=== PATIENT | female | born 1945 | race Caucasian/White ===

== ENCOUNTER 2018-11-22 20:34 | Inpatient (IN) | payer MEDICARE, MEDICAID ==
[2018-11-22] MEDS ORDERED: Sodium Chloride 0.9% 1,000 ML IV ONE (20:50)
--- NOTE | 2018-11-22 21:04 | C.PDOC ---
History Of Present Illness 73 y/o female comes in to ED complaining of diarrhea x3 days with mucus, no blood. Patient denies abdominal pain but states she feels nauseous. Patient also denies chest pain, SOB, fever, chills, or other symptoms. Time Seen by Provider: 11/22/18 20:45 Chief Complaint (Nursing): Abdominal Pain History Per: Patient History/Exam Limitations: no limitations Onset/Duration Of Symptoms: Days Current Symptoms Are (Timing): Still Present Past Medical History Reviewed: Historical Data, Nursing Documentation, Vital Signs Vital Signs: Last Vital Signs Temp 97.3 F L 11/22/18 20:49 Pulse 74 11/22/18 20:49 Resp 18 11/22/18 20:49 BP 169/95 H 11/22/18 20:49 Pulse Ox 97 11/22/18 20:49 Family History: States: No Known Family Hx Review Of Systems Except As Marked, All Systems Reviewed And Found Negative. Gastrointestinal: Positive for: Nausea, Diarrhea Physical Exam - Physical Exam Appears: Non-toxic, No Acute Distress Skin: Normal Color, Warm, Dry Head: Atraumatic, Normacephalic Eye(s): bilateral: Normal Inspection, PERRL Oral Mucosa: Moist Neck: Supple Cardiovascular: Rhythm Regular, No Murmur Respiratory: Normal Breath Sounds, No Rales, No Rhonchi, No Wheezing Gastrointestinal/Abdominal: Soft, No Tenderness Extremity: Bilateral: Atraumatic, Normal Color And Temperature, Normal ROM Neurological/Psych: Oriented x3, Normal Speech ED Course And Treatment - Laboratory Results Result Diagrams: 11/22/18 21:17 11/22/18 21:17 ECG: Interpreted By Me, Viewed By Me ECG Rhythm: Sinus Bradycardia ECG Interpretation: Normal Interpretation Of ECG: Normal intervals, left anterior fasicular block, no ST/T wave abnormalities Rate From EC O2 Sat by Pulse Oximetry: 97 (RA) Pulse Ox Interpretation: Normal Medical Decision Making Medical Decision Making: Impression: Diarrhea Plan: --Abd/Pel CT --EKG --Labs --Pepcid 20 mg IV --IV fluids 1L --Zofran 4 mg IV During evaluation, patient now complaining of chest pressure and SOB, EKG and trop ordered, still pending imaging. Disposition Discussed With : Salas Hsu - Disposition Disposition Time: 01:00 Condition: STABLE Forms: Serious [place] ([place]ic) - Clinical Impression Clinical Impression: Diarrhea, Hypokalemia, Chest pain - Scribe Statement The provider has reviewed the documentation as recorded by the Avelinaibximena De León Provider Attestation: All medical record entries made by the Scribe were at my direction and personally dictated by me. I have reviewed the chart and agree that the record accurately reflects my personal performance of the history, physical exam, medical decision making, and the department course for this patient. I have also personally directed, reviewed, and agree with the discharge instructions and disposition. Physician Patient Turnover Patient Signed Over To: Salas Hsu Handoff Comments: pending labs, imaging reevaluation and disposition
[2018-11-22 21:20] LABS: EOS % 0.8 % (0.0-4.0); HEMOGLOBIN 14.5 g/dL (11.0-16.0); LYMPH # 0.9 K/uL (1.0-4.3); MEAN CELL VOLUME 85.4 fL (81.0-99.0); MEAN CORPUSCULAR HEMOGLOBIN 28.8 pg (27.0-31.0); MEAN CORPUSCULAR HGB CONC 33.7 g/dL (33.0-37.0); MONO # 0.4 K/uL (0.0-0.8); MONO % 7.4 % (0.0-10.0); NEUT # 3.6 K/uL (1.8-7.0); NEUT % 71.8 % (50.0-75.0); RBC 5.03 Mil/uL (3.80-5.20); RED CELL DISTRIBUTION WIDTH 14.1 % (11.5-14.5)
[2018-11-22 21:28] LABS: INR 1.2; PROTHROMBIN TIME 12.6 SECONDS (9.7-12.2)
[2018-11-22 21:32] LABS: ALB/GLOB RATIO 1.5 (1.0-2.1); ALBUMIN 4.2 g/dL (3.5-5.0); CALCIUM 8.4 mg/dl (8.6-10.4)
[2018-11-22] MEDS ORDERED: Iodixanol 320 MG/ML 100 ML BOTTLE IV ONE (22:39)
[2018-11-22] MEDS ORDERED: Albuterol 0.083% Inhal Sol (2.5 mg/3 mL) UD INH STA (23:04)
[2018-11-23] MEDS ORDERED: Ciprofloxacin 400mg/200ml D5W 400 MG/200 ML BAG IVPB STA ×2 (04:26→06:39)
[2018-11-23] MEDS ORDERED: metroNIDAZOLE IV 500 mg/100 ml 500 MG/100 ML BAG IVPB STA (04:26)
[2018-11-23] MEDS ORDERED: Ciprofloxacin 400mg/200ml D5W 400 MG/200 ML BAG IVPB ONE (04:48)
[2018-11-23] MEDS ORDERED: metroNIDAZOLE IV 500 mg/100 ml 500 MG/100 ML BAG ONE ×2 (04:48→14:21)
[2018-11-23] MEDS: Potassium Chl 40 mEq in D5-1/2 1,000 ML IV SCH ×4 (04:58→23:29)
[2018-11-23] MEDS ORDERED: Enoxaparin 40 mg Syringe SC ONE (07:00)
[2018-11-23 07:27] LABS: CK-MB 1.53 ng/mL (0.0-3.38)
[2018-11-23] MEDS ORDERED: Enoxaparin 40 mg Syringe ONE (08:25)
--- NOTE | 2018-11-23 10:19 | CT ---
CT abdomen and pelvis HISTORY: Abdominal pain. COMPARISON: None available. Technique: Multiple contiguous axial images were performed through the abdomen and pelvis with the use of intravenous contrast. Subsequently, sagittal and coronal reformatted images were obtained. This CT exam was performed using one or more of the following dose reduction techniques: Automated exposure control, adjustment of the mA and/or kV according to patient size, and/or use of iterative reconstruction technique. Findings: Lung bases are clear. No pleural or pericardial effusion. Mild intrahepatic biliary ductal dilatation. Left hepatic parenchymal calcification. Prior cholecystectomy. Postsurgical prominence of the common bile duct. Spleen is preserved. Adrenal glands are preserved. Fatty atrophy of the pancreas. Small hiatal hernia. Right kidney: No calculi or hydronephrosis. Left Kidney: No calculi or hydronephrosis. Contracted urinary bladder. Heterogeneous uterus. Diffuse colonic diverticulosis. Diffuse thickening of the colon suggestive for a colitis. Postsurgical changes at the level of the cecum. Appendix not well visualized. Few shotty para-aortic and inguinal lymph nodes. Atherosclerotic calcification and plaque within the aorta. Small midline fat containing umbilical hernia. Degenerative changes in the spine. Impression: Diffuse colonic diverticulosis. Diffuse thickening of the colon suggestive for a colitis. Additional findings as above. A preliminary report was generated at 4:23 a.m. on 11/23/[address] Jenyn Lambert from [facility].
[2018-11-23 13:42] LABS: CK-MB 1.53 ng/mL (0.0-3.38)
[2018-11-23] MEDS ORDERED: Morphine 4 MG/ML VIAL ONE (14:20)
[2018-11-23] MEDS: metroNIDAZOLE IV 500 mg/100 ml 500 MG/100 ML BAG IVPB SCH ×2 (14:31→23:29)
[2018-11-23] MEDS ORDERED: Morphine 4 MG/ML VIAL SC PRN (14:45)
[2018-11-23 19:41] LABS: CK-MB 1.77 ng/mL (0.0-3.38)
[2018-11-24] MEDS: Potassium Chl 40 mEq in D5-1/2 1,000 ML IV SCH (01:00)
--- NOTE | 2018-11-24 04:39 | HP ---
CHIEF COMPLAINT: Abdominal pain. HISTORY OF PRESENT ILLNESS: A 73-year-old female with history of hypertension, hyperlipidemia, and the patient has prior history of hospitalization, and the patient came in because of abdominal pain which started about two days ago which is periumbilical, more in the left lower quadrant. Along with that, she has three days of diarrhea with mucus with no blood. She has some abdominal pain and nausea. She vomited once. She had chill, rigors, and pain. She vomited in the ER as well, and she denies any hematemesis, melena, or hematochezia. She denies any history of any GI malignancy in the past. She denies any prior GI bleeds. Along with that, she has dull substernal chest pain, nonradiating, not associated with diaphoresis or dizziness. It is nonexertional, nonpositional, nonradiating, and the chest pain is dull. There is no history of diaphoresis or dizziness with the chest pain, there is no history of cough, sore throat, or runny nose. There is no history of trauma, fall, or loss of consciousness. There is no history of seizure-like activity. CURRENT MEDICATIONS: She is on magnesium, metoprolol, omeprazole, Hyzaar, and Lipitor. SOCIAL HISTORY: Nonsmoker, non-EtOH user. PAST MEDICAL HISTORY: Positive for hypertension, hyperlipidemia, and negative coronary artery disease. PHYSICAL EXAMINATION: GENERAL: An elderly female, in distress with nausea, vomiting, and abdominal pain. VITAL SIGNS: Blood pressure 147/54, pulse 58, respiratory rate 17, and temperature 98.6. SKIN: Senile turgor. No bruises. No purpura. No petechiae. HEENT: Atraumatic, normocephalic. Negative pallor. Negative jaundice. Extraocular movements are intact. NECK: Supple. No JVD. No lymph node. No thyromegaly. No carotid bruit. CHEST WALL: Bilateral symmetrical expansion. LUNGS: Bilaterally clear. No rales or rhonchi. CARDIOVASCULAR SYSTEM: PMI not localized. S1 and S2 regular. No heave. No thrill. ABDOMEN: Soft with periumbilical tenderness with some voluntary guarding. Bowel sounds are present. RECTAL: No masses. No bleed. EXTREMITIES: No clubbing, cyanosis, or edema. CENTRAL NERVOUS SYSTEM: Awake, alert, and oriented x3. Cranial nerves II through XII are normal. Power 5/5 x4. Plantars are downgoing. ASSESSMENT: 1. Acute colitis. It could be epithelial versus viral. Rule out gastroenteritis. Rule out ischemic colitis. Rule out diverticulosis or diverticulitis. 2. Chest pain. Rule out myocardial infarction. 3. Hypertension. 4. Hyperlipidemia. PLAN: Admit. Detailed orders are written. Seen and examined. Parag Lamar MD
[2018-11-24] MEDS: metroNIDAZOLE IV 500 mg/100 ml 500 MG/100 ML BAG IVPB SCH ×3 (05:07→21:31)
[2018-11-24 10:17] LABS: ALB/GLOB RATIO 1.5 (1.0-2.1); ALBUMIN 3.4 g/dL (3.5-5.0); CALCIUM 7.9 mg/dl (8.6-10.4)
--- NOTE | 2018-11-24 12:33 | CP.PCM.CON ---
History of Present Illness - History of Present Illness History of Present Illness: 73-year-old lady with history of hypertension, history of bronchial asthma severe at time, never intubated still with the multiple occasions in addition to beta agonist. Also with low back pain and gastro-esophageal reflux with obesity. On medical follow-up. She presented to the emergency department with abdominal pain periumbilical in addition to right lower quadrant associated with one episode of vomiting in addition to mucous diarrhea. Initial workup with CAT scan was unremarkable and she is to be seen by GI service to evaluate the possibility of colitis. She has atypical chest pain and in 2016 she underwent a stress test that was unremarkable for ischemia with possible artifact and ejection fraction of 65%. We will follow-up with GI. EKG with no acute changes and negative SD cardiac workup for probable coronary artery disease as outpatient. Also found to have hypokalemia after the diarrhea abnormalities corrected Review of Systems - Review of Systems Systems not reviewed;Unavailable: Unstable Vital Signs - Constitutional Constitutional: Anorexia, Weakness - EENT Eyes: absent: Dry Eye, Exophthalmos Ears: absent: Ear Discharge, Dizziness Nose/Mouth/Throat: absent: Nasal Congestion - Cardiovascular Cardiovascular: Dyspnea on Exertion. absent: Acrocyanosis, Chest Pain, Pedal Edema, Syncope - Respiratory Respiratory: Cough. absent: Dyspnea, Hemoptysis - Gastrointestinal Gastrointestinal: Abdominal Pain, Diarrhea, Nausea, Vomiting - Genitourinary Genitourinary: absent: Difficulty Urinating - Reproductive: Female Reproductive:Female: Post Menopausal Past Patient History - Infectious Disease Hx of Infectious Diseases: None - Past Social History Smoking Status: Never Smoked - CARDIAC Hx Cardiac Disorders: No Hx Hypertension: Yes - RENAL Hx Kidney Stones: Yes - GASTROINTESTINAL Hx Gall Bladder Disease: Yes - PSYCHIATRIC Hx Substance Use: No - SURGICAL HISTORY Hx Section: Yes (x3) - ANESTHESIA Hx Anesthesia: Yes Hx Anesthesia Reactions: No Meds Allergies/Adverse Reactions: Allergies Allergy/AdvReac Type Severity Reaction Status Date / Time Unobtainable Allergy Verified 11/22/18 20:50 - Medications Medications: Current Medications Aspirin (Aspirin Chewable) 81 mg PO DAILY [facility] Last Admin: 11/24/18 11:20 Dose: 81 mg Metronidazole (Flagyl) 500 mg in 100 mls @ 100 mls/hr IVPB Q8 [facility]; Protocol Last Admin: 11/24/18 05:07 Dose: 100 mls/hr Potassium Chloride/Dextrose/Sod Cl (Potassium Chl 20 Meq In D5-1/2ns) 1,000 mls @ 70 mls/hr IV .[id number] [facility] Morphine Sulfate (Morphine) 1 mg SC Q4 PRN PRN Reason: Pain, severe (8-10) Last Admin: 11/24/18 00:15 Dose: 1 mg Ondansetron HCl (Zofran Inj) 4 mg IVP Q4 PRN PRN Reason: Nausea/Vomiting Last Admin: 11/23/18 17:19 Dose: 4 mg Rosuvastatin Calcium (Crestor) 10 mg PO HS [facility] Physical Exam - Constitutional Appears: Non-toxic - Head Exam Head Exam: ATRAUMATIC - Eye Exam Eye Exam: EOMI - ENT Exam ENT Exam: Mucous Membranes Moist - Neck Exam Neck exam: Negative for: Lymphadenopathy, Thyromegaly - Respiratory Exam Respiratory Exam: absent: Chest Wall Tenderness - Cardiovascular Exam Cardiovascular Exam: REGULAR RHYTHM, Systolic Murmur. absent: Tachycardia - GI/Abdominal Exam GI & Abdominal Exam: Normal Bowel Sounds. absent: Organomegaly - Rectal Exam Rectal Exam: Deferred - Extremities Exam Extremities exam: Positive for: pedal pulses present. Negative for: calf tenderness - Neurological Exam Neurological exam: Alert, Altered, Oriented x3 - Psychiatric Exam Psychiatric exam: Anxious - Skin Skin Exam: Dry Results - Vital Signs Recent Vital Signs: Last Vital Signs Temp 97.9 F 11/24/18 08:00 Pulse 65 11/24/18 08:00 Resp 20 11/24/18 08:00 BP 142/78 11/24/18 08:00 Pulse Ox 98 11/24/18 08:00 - Labs Result Diagrams: 11/22/18 21:17 11/24/18 09:48 Labs: Laboratory Results - last 24 hr 11/23/18 11/23/18 11/23/18 13:08 13:08 19:13 D-Dimer, Quantitative 208 Sodium Potassium Chloride Carbon Dioxide Anion Gap BUN Creatinine Est GFR ( Amer) Est GFR (Non-Af Amer) Random Glucose Calcium Total Bilirubin AST ALT Alkaline Phosphatase Total Creatine Kinase 106 111 CK-MB (Mass) 1.53 1.77 Troponin I < 0.0120 < 0.0120 Total Protein Albumin Globulin Albumin/Globulin Ratio 11/24/18 09:48 D-Dimer, Quantitative Sodium 138 Potassium 4.0 Chloride 109 H Carbon Dioxide 22 Anion Gap 11 BUN 3 L Creatinine 1.1 Est GFR ( Amer) 59 Est GFR (Non-Af Amer) 49 Random Glucose 144 H Calcium 7.9 L Total Bilirubin 0.4 AST 31 ALT 29 Alkaline Phosphatase 174 H D Total Creatine Kinase CK-MB (Mass) Troponin I Total Protein 5.8 L Albumin 3.4 L Globulin 2.3 Albumin/Globulin Ratio 1.5 Assessment & Plan (1) Abdominal pain Status: Acute Comment: Possible colitis follow-up with GI (2) Hypertension Status: Chronic (3) Chest pain Status: Acute Comment: Atypical, no SD, no EKG changes or enzymes, workup as outpatient. (4) Diarrhea Status: Acute Comment: Possible colitis (5) Hypokalemia Status: Acute Comment: Corrected
[2018-11-24] MEDS: Potassium Ch 20mEq in D5-1/2NS 1,000 ML IV SCH (13:54)
--- NOTE | 2018-11-24 20:35 | CP.PCM.HP ---
Present on Admission - Present on Admission Any Indicators Present on Admission: No Past Patient History - Infectious Disease Hx of Infectious Diseases: None - Past Social History Smoking Status: Never Smoked - CARDIAC Hx Cardiac Disorders: No Hx Hypertension: Yes - RENAL Hx Kidney Stones: Yes - GASTROINTESTINAL Hx Gall Bladder Disease: Yes - PSYCHIATRIC Hx Substance Use: No - SURGICAL HISTORY Hx Section: Yes (x3) - ANESTHESIA Hx Anesthesia: Yes Hx Anesthesia Reactions: No Meds Allergies/Adverse Reactions: Allergies Allergy/AdvReac Type Severity Reaction Status Date / Time Unobtainable Allergy Verified 11/22/18 20:50 Results - Vital Signs Recent Vital Signs: Last Vital Signs Temp 97.8 F 11/24/18 17:30 Pulse 65 11/24/18 17:30 Resp 20 11/24/18 17:30 BP 144/86 11/24/18 17:30 Pulse Ox 98 11/24/18 17:41 - Labs Result Diagrams: 11/22/18 21:17 11/24/18 09:48 Labs: Laboratory Results - last 24 hr 11/24/18 09:48 Sodium 138 Potassium 4.0 Chloride 109 H Carbon Dioxide 22 Anion Gap 11 BUN 3 L Creatinine 1.1 Est GFR ( Amer) 59 Est GFR (Non-Af Amer) 49 Random Glucose 144 H Calcium 7.9 L Total Bilirubin 0.4 AST 31 ALT 29 Alkaline Phosphatase 174 H D Total Protein 5.8 L Albumin 3.4 L Globulin 2.3 Albumin/Globulin Ratio 1.5
--- NOTE | 2018-11-24 20:35 | CP.PCM.PN ---
Subjective - Date & Time of Evaluation Date of Evaluation: 11/24/18 Time of Evaluation: 07:20 - Subjective Subjective: dictated Objective - Vital Signs/Intake and Output Vital Signs (last 24 hours): Temp Pulse Resp BP Pulse Ox 97.8 F 65 20 144/86 98 11/24/18 17:30 11/24/18 17:30 11/24/18 17:30 11/24/18 17:30 11/24/18 17:41 Intake and Output: 11/24/18 11/25/18 18:59 06:59 Intake Total 1080 Balance 1080 - Medications Medications: Current Medications Aspirin (Aspirin Chewable) 81 mg PO DAILY [facility] Last Admin: 11/24/18 11:20 Dose: 81 mg Metronidazole (Flagyl) 500 mg in 100 mls @ 100 mls/hr IVPB Q8 [facility]; Protocol Last Admin: 11/24/18 13:45 Dose: 100 mls/hr Potassium Chloride/Dextrose/Sod Cl (Potassium Chl 20 Meq In D5-1/2ns) 1,000 mls @ 70 mls/hr IV .[id number] [facility] Last Admin: 11/24/18 13:54 Dose: 70 mls/hr Morphine Sulfate (Morphine) 1 mg SC Q4 PRN PRN Reason: Pain, severe (8-10) Last Admin: 11/24/18 00:15 Dose: 1 mg Ondansetron HCl (Zofran Inj) 4 mg IVP Q4 PRN PRN Reason: Nausea/Vomiting Last Admin: 11/24/18 14:57 Dose: 4 mg Rosuvastatin Calcium (Crestor) 10 mg PO HS [facility] - Labs Labs: 11/22/18 21:17 11/24/18 09:48 PT 12.6 SECONDS (9.7-12.2) H 11/22/18 21:17 INR 1.2 11/22/18 21:17 APTT 31 SECONDS (21-34) 11/22/18 21:17
--- NOTE | 2018-11-25 01:54 | PN ---
DATE: 11/24/2018 SUBJECTIVE: The patient has decreased abdominal pain. No nausea or vomiting. She has been seen by GI and Cardiology. No chest pain. Cardiac enzymes x3 are negative. PHYSICAL EXAMINATION: VITAL SIGNS: Blood pressure 144/86, pulse 61, respiratory rate 20, temperature 97.8. LUNGS: Clear. CARDIOVASCULAR SYSTEM: S1, S2, regular. ABDOMEN: Minimal tenderness. ASSESSMENT: 1. Abdominal pain, gastritis. 2. Chest pain ruled out, acute myocardial infarction. 3. Hypertension. 4. Hyperlipidemia. PLAN: Monitor the patient. Parag Lamar MD
[2018-11-25] MEDS: Potassium Ch 20mEq in D5-1/2NS 1,000 ML IV SCH ×2 (02:08→16:30)
[2018-11-25] MEDS: metroNIDAZOLE IV 500 mg/100 ml 500 MG/100 ML BAG IVPB SCH ×3 (05:32→21:13)
[2018-11-25 08:37] LABS: BASO % 0.6 % (0.0-2.0); EOS # 0.2 K/uL (0.0-0.7); EOS % 5.4 % (0.0-4.0); HEMOGLOBIN 13.3 g/dL (11.0-16.0); LYMPH # 1.1 K/uL (1.0-4.3); LYMPH % 30.9 % (20.0-40.0); MEAN CELL VOLUME 86.5 fL (81.0-99.0); MEAN CORPUSCULAR HEMOGLOBIN 28.9 pg (27.0-31.0); MEAN CORPUSCULAR HGB CONC 33.4 g/dL (33.0-37.0); MEAN PLATELET VOLUME 8.1 fL (7.2-11.7); MONO # 0.3 K/uL (0.0-0.8); MONO % 7.9 % (0.0-10.0); NEUT % 55.2 % (50.0-75.0); RBC 4.6 Mil/uL (3.80-5.20); RED CELL DISTRIBUTION WIDTH 14.6 % (11.5-14.5); WHITE BLOOD COUNT 3.7 K/uL (4.8-10.8)
[2018-11-25 08:54] LABS: ALB/GLOB RATIO 1.4 (1.0-2.1); ALBUMIN 3.3 g/dL (3.5-5.0); ALT/SGPT 41 U/L (9-52); AST/SGOT 48 U/L (14-36); BLOOD UREA NITROGEN 3 mg/dL (7-17); CALCIUM 7.9 mg/dl (8.6-10.4); GFR NON-AFRICAN AMERICAN 55
--- NOTE | 2018-11-25 12:58 | CP.PCM.CON ---
History of Present Illness - History of Present Illness History of Present Illness: GI Consult Note for Dr. Vargas CC: abdominal pain and diarrhea x 8 days HPI: Patient is a 73 year old female with a past medical history of hypertension, hyperlipidemia, asthma, and GERD, who presented for evaluation of abdominal pain and diarrhea x8 days. She presented to the ER on 11/23/18, and was admitted for further evaluation. Patient states that the diarrhea started suddenly and she has had multiple episodes of diarrhea per day. She states that the abdominal pain has been constant, is worse in the LLQ and radiates to the center of the abdomen, and is described as a dull pressure. She reports that the diarrhea was initially very dark in color, but now appears to be more construction person brown in color. She has associated nausea, vomiting x1, loss of appetite. She denies any fever, chills, or blood in the stool. She tried taking Pepto Bismol for the diarrhea, but it did not help. Patient reports that about 2 weeks ago, she was treated with antibiotics for a cough, and the diarrhea started shortly after her treatment. She denies any sick contacts, recent travel, or eating raw or undercooked food recently. Of note, patient had upper respiratory symptoms a few weeks ago which prompted her to go to her PMD Dr. Mcwilliams as an outpatient. Patient was rx 15 days worth of abx and had only 3 pills left prior to going to the ER and being admitted. Patient also took peptol bismol 7 days ago once without any relief. Patient was previously at [facility] last December 2017 (approximate) for similar symptoms. She remembered having an upper endoscopy and possibly a colonoscopy. Patient does not remember the results. She reports that she had her appendectomy at that time, but was later told that there were no issues with the appendix. ROS: as per HPI PMHx: -GERD -Hypertension -Asthma -Hyperlipidemia PSHx: 3 sections Cholecystectomy Appendectomy FHx: No family history of colon cancer or stomach cancer SocHx: Former smoker, quit 1 year ago, previously smoked 0.5ppd x50 years. Denies EtOH and illicit drug use. Home Meds: -Metoprolol for hypertension -Omeprazole for GERD -Losartan/hydrochlorothiazide for hypertension -Atorvastatin for hyperlipidemia -Mg supplement for leg cramps Allergies: Codeine. Reaction - respiratory distress "elephant on my chest" Past Patient History - Infectious Disease Hx of Infectious Diseases: None - Past Social History Smoking Status: Never Smoked - CARDIAC Hx Cardiac Disorders: No Hx Hypertension: Yes - RENAL Hx Kidney Stones: Yes - GASTROINTESTINAL Hx Gall Bladder Disease: Yes - PSYCHIATRIC Hx Substance Use: No - SURGICAL HISTORY Hx Section: Yes (x3) - ANESTHESIA Hx Anesthesia: Yes Hx Anesthesia Reactions: No Meds Allergies/Adverse Reactions: Allergies Allergy/AdvReac Type Severity Reaction Status Date / Time Unobtainable Allergy Verified 11/22/18 20:50 - Medications Medications: Current Medications Aspirin (Aspirin Chewable) 81 mg PO DAILY [facility] Last Admin: 11/25/18 09:38 Dose: 81 mg Metronidazole (Flagyl) 500 mg in 100 mls @ 100 mls/hr IVPB Q8 [facility]; Protocol Last Admin: 11/25/18 05:32 Dose: 100 mls/hr Potassium Chloride/Dextrose/Sod Cl (Potassium Chl 20 Meq In D5-1/2ns) 1,000 mls @ 70 mls/hr IV .[id number] [facility] Last Admin: 11/25/18 02:08 Dose: Not Given Morphine Sulfate (Morphine) 1 mg SC Q4 PRN PRN Reason: Pain, severe (8-10) Last Admin: 11/24/18 00:15 Dose: 1 mg Ondansetron HCl (Zofran Inj) 4 mg IVP Q4 PRN PRN Reason: Nausea/Vomiting Last Admin: 11/25/18 02:39 Dose: 4 mg Rosuvastatin Calcium (Crestor) 10 mg PO HS [facility] Last Admin: 11/24/18 21:31 Dose: 10 mg Physical Exam - Constitutional Appears: Well, Non-toxic - Head Exam Head Exam: ATRAUMATIC, NORMAL INSPECTION - Eye Exam Eye Exam: EOMI, Normal appearance - Neck Exam Neck exam: Positive for: Normal Inspection - Respiratory Exam Respiratory Exam: Clear to Auscultation Bilateral, NORMAL BREATHING PATTERN - Cardiovascular Exam Cardiovascular Exam: REGULAR RHYTHM - GI/Abdominal Exam GI & Abdominal Exam: Normal Bowel Sounds, Soft, Tenderness (RLQ and LLQ tender to palpation) - Extremities Exam Extremities exam: Positive for: normal inspection. Negative for: tenderness - Back Exam Back exam: NORMAL INSPECTION - Neurological Exam Neurological exam: Alert, Oriented x3 - Psychiatric Exam Psychiatric exam: Normal Affect, Normal Mood - Skin Skin Exam: Dry, Intact, Normal Color, Warm Results - Vital Signs Recent Vital Signs: Last Vital Signs Temp 97.6 F 11/25/18 07:00 Pulse 56 L 11/25/18 07:00 Resp 20 11/25/18 07:00 BP 139/70 11/25/18 07:00 Pulse Ox 98 11/25/18 07:55 - Labs Result Diagrams: 11/25/18 08:28 11/25/18 08:28 Labs: Laboratory Results - last 24 hr 11/24/18 11/25/18 11/25/18 19:51 08:28 08:28 WBC 3.7 L RBC 4.60 Hgb 13.3 Hct 39.7 MCV 86.5 MCH 28.9 MCHC 33.4 RDW 14.6 H Plt Count 190 MPV 8.1 Neut % (Auto) 55.2 Lymph % (Auto) 30.9 Pi[place] % (Auto) 7.9 Eos % (Auto) 5.4 H Baso % (Auto) 0.6 Neut # (Auto) 2.0 Lymph # (Auto) 1.1 [place] # (Auto) 0.3 Eos # (Auto) 0.2 Baso # (Auto) 0.0 Sodium 137 Potassium 3.8 Chloride 108 H Carbon Dioxide 24 Anion Gap 9 L BUN 3 L Creatinine 1.0 Est GFR ( Amer) > 60 Est GFR (Non-Af Amer) 55 Random Glucose 95 D Calcium 7.9 L Total Bilirubin 0.6 AST 48 H D ALT 41 Alkaline Phosphatase 170 H Total Protein 5.7 L Albumin 3.3 L Globulin 2.4 Albumin/Globulin Ratio 1.4 C. difficile Ag & Toxin Negative Assessment & Plan - Assessment and Plan (Free Text) Assessment: Patient is a 73 year old female with a past medical history of hypertension, hyperlipidemia, asthma, and GERD, who presented for evaluation of abdominal pain and diarrhea x8 days. Colitis -Patient w/ nonbloody diarrhea and colitis shown on CTAP on admission 11/22. C diff antigen and tox negative, stool O&P negative. Ddx includes diverticulitis, infectious (however so far negative workup), ischemic colitis, inflammatory bowel disease, chronic pancreatic insufficiency (unlikely as CTAP w/ pancreas wnl). -Pending CEA, FOBT, stool leukocyte, stool culture. Diarrhea could also be abx induced 2/2 abx from primary care. -colonoscopy scheduled for tomorrow, 11/25, w/ Dr. Vargas. -Bowel prep: Golytely ordered for now and dulcolax at 1800 tonight. -NPO after midnight except meds. -added ceftriaxone 1g daily to cover for gram negative bacteria -added florastor probiotics -f/u BMP AM HTN -continue with home med HLD -continue with home med crestor 10 mg daily Candace Pickard PGY1
[2018-11-25] MEDS ORDERED: Peg-Electrolyte Oral Soln 4L (Golytely) PO ONE (13:11)
[2018-11-25] MEDS: Saccharomyces Boulardi 250 mg Cap PO SCH (14:11)
[2018-11-25] MEDS ORDERED: Bisacodyl 5mg EC Tab PO ONE ×2 (18:00→18:15)
--- NOTE | 2018-11-25 21:24 | CP.PCM.PN ---
Subjective - Date & Time of Evaluation Date of Evaluation: 11/25/18 Time of Evaluation: 17:21 - Subjective Subjective: dictated Objective - Vital Signs/Intake and Output Vital Signs (last 24 hours): Temp Pulse Resp BP Pulse Ox 97.0 F L 76 18 148/78 96 11/25/18 16:47 11/25/18 16:47 11/25/18 16:47 11/25/18 16:47 11/25/18 16:47 - Medications Medications: Current Medications Aspirin (Aspirin Chewable) 81 mg PO DAILY [facility] Last Admin: 11/25/18 09:38 Dose: 81 mg Metronidazole (Flagyl) 500 mg in 100 mls @ 100 mls/hr IVPB Q8 [facility]; Protocol Last Admin: 11/25/18 21:13 Dose: 100 mls/hr Potassium Chloride/Dextrose/Sod Cl (Potassium Chl 20 Meq In D5-1/2ns) 1,000 mls @ 70 mls/hr IV .[id number] [facility] Last Admin: 11/25/18 16:30 Dose: Not Given Ceftriaxone Sodium 1 gm/ (Sodium Chloride) 100 mls @ 100 mls/hr IVPB Q24H [facility]; Protocol Last Admin: 11/25/18 14:30 Dose: Not Given Morphine Sulfate (Morphine) 1 mg SC Q4 PRN PRN Reason: Pain, severe (8-10) Last Admin: 11/24/18 00:15 Dose: 1 mg Ondansetron HCl (Zofran Inj) 4 mg IVP Q4 PRN PRN Reason: Nausea/Vomiting Last Admin: 11/25/18 02:39 Dose: 4 mg Rosuvastatin Calcium (Crestor) 10 mg PO HS [facility] Last Admin: 11/25/18 21:13 Dose: 10 mg Saccharomyces Boulardii (Florastor) 250 mg PO DAILY [facility] Last Admin: 11/25/18 14:11 Dose: 250 mg - Labs Labs: 11/25/18 08:28 11/25/18 08:28 PT 12.6 SECONDS (9.7-12.2) H 11/22/18 21:17 INR 1.2 11/22/18 21:17 APTT 31 SECONDS (21-34) 11/22/18 21:17
--- NOTE | 2018-11-26 03:37 | PN ---
DATE: 11/25/2018 SUBJECTIVE: The patient is in a lot of abdominal pain, nausea, vomiting and loose watery stool. No fever. No chills. discomfort. No leukocytosis. Stool, C. diff is negative. PHYSICAL EXAMINATION VITAL SIGNS: Blood pressure 148/78, pulse 76, respiratory rate 18, temperature 97. LUNGS: Clear. ABDOMEN: Soft. Positive diffuse guarding. No rigidity. Bowel sounds non-exaggerated. CENTRAL NERVOUS SYSTEM: Awake, alert and oriented x3. ASSESSMENT: 1. Gastroenteritis, rule out colitis. 2. Dehydration. 3. Non-cardiac chest pain. 4. Hypertension. PLAN: Medical management. Stool cultures. Veda Cruz. GI evaluation. Parag Lamar MD
[2018-11-26] MEDS: metroNIDAZOLE IV 500 mg/100 ml 500 MG/100 ML BAG IVPB SCH ×3 (06:24→22:42)
[2018-11-26 07:50] LABS: CALCIUM 7.8 mg/dl (8.6-10.4)
[2018-11-26] MEDS ORDERED: Enoxaparin 40 mg Syringe SC SCH (10:00)
[2018-11-26] MEDS: Saccharomyces Boulardi 250 mg Cap PO SCH (10:50)
[2018-11-26] MEDS ORDERED: Lactated Ringer's 1,000 ML IV ONE (12:15)
[2018-11-26] MEDS ORDERED: Propofol 10 mg/ml Inj (20 ML) ONE (12:20)
[2018-11-26] MEDS ORDERED: Glucagon Recombinant 1 mg Inj ONE (12:29)
[2018-11-26] MEDS: Belladonna-Phenobarbital PO SCH ×2 (13:58→19:30)
--- NOTE | 2018-11-26 14:04 | CARD ---
APPROVED REPORT Date of service: 11/22/2018 EKG Measurement Heart [id number] <Conclusion> Sinus bradycardia Left anterior fascicular block Abnormal ECG
[2018-11-26 16:02] VITALS: RESP 20
[2018-11-26] MEDS: Potassium Ch 20mEq in D5-1/2NS 1,000 ML IV SCH (16:19)
[2018-11-26] MEDS: Pantoprazole 40 mg EC Tab PO SCH (16:28)
--- NOTE | 2018-11-26 19:35 | CP.PCM.PN ---
Subjective - Date & Time of Evaluation Date of Evaluation: 11/25/18 Time of Evaluation: 12:00 - Subjective Subjective: In bed no acute distress, abdominal pain is improving. No chest pain. No vomiting and less diarrhea. Potassium is corrected, white count 3.7 Objective - Vital Signs/Intake and Output Vital Signs (last 24 hours): Temp Pulse Resp BP Pulse Ox 97.6 F 56 L 20 139/70 98 11/25/18 07:00 11/25/18 07:00 11/25/18 07:00 11/25/18 07:00 11/25/18 07:55 Intake and Output: 11/25/18 11/25/18 06:59 18:59 Intake Total 950 Output Total 2 Balance 948 - Medications Medications: Current Medications Aspirin (Aspirin Chewable) 81 mg PO DAILY [facility] Last Admin: 11/25/18 09:38 Dose: 81 mg Metronidazole (Flagyl) 500 mg in 100 mls @ 100 mls/hr IVPB Q8 [facility]; Protocol Last Admin: 11/25/18 05:32 Dose: 100 mls/hr Potassium Chloride/Dextrose/Sod Cl (Potassium Chl 20 Meq In D5-1/2ns) 1,000 mls @ 70 mls/hr IV .[id number] [facility] Last Admin: 11/25/18 02:08 Dose: Not Given Morphine Sulfate (Morphine) 1 mg SC Q4 PRN PRN Reason: Pain, severe (8-10) Last Admin: 11/24/18 00:15 Dose: 1 mg Ondansetron HCl (Zofran Inj) 4 mg IVP Q4 PRN PRN Reason: Nausea/Vomiting Last Admin: 11/25/18 02:39 Dose: 4 mg Rosuvastatin Calcium (Crestor) 10 mg PO HS [facility] Last Admin: 11/24/18 21:31 Dose: 10 mg - Labs Labs: 11/25/18 08:28 11/25/18 08:28 PT 12.6 SECONDS (9.7-12.2) H 11/22/18 21:17 INR 1.2 11/22/18 21:17 APTT 31 SECONDS (21-34) 11/22/18 21:17 - Constitutional Appears: Non-toxic - Head Exam Head Exam: ATRAUMATIC - Eye Exam Eye Exam: EOMI - ENT Exam ENT Exam: Mucous Membranes Moist - Neck Exam Neck Exam: absent: Lymphadenopathy, Thyromegaly - Respiratory Exam Respiratory Exam: absent: Chest Wall Tenderness - Cardiovascular Exam Cardiovascular Exam: REGULAR RHYTHM, Murmur. absent: Tachycardia - GI/Abdominal Exam GI & Abdominal Exam: Tenderness, Normal Bowel Sounds. absent: Organomegaly - Rectal Exam Rectal Exam: Deferred - Extremities Exam Extremities Exam: Normal Capillary Refill. absent: Calf Tenderness, Tenderness - Neurological Exam Neurological Exam: Alert, Oriented x3 - Psychiatric Exam Psychiatric exam: Anxious - Skin Skin Exam: Dry Assessment and Plan (1) Abdominal pain Status: Acute (2) Hypertension Status: Chronic (3) Chest pain Status: Acute (4) Diarrhea Status: Acute (5) Hypokalemia Status: Acute
--- NOTE | 2018-11-26 19:38 | CP.PCM.PN ---
Subjective - Date & Time of Evaluation Date of Evaluation: 11/26/18 Time of Evaluation: 13:00 - Subjective Subjective: neg w/u for c diff infection, divertic on colonoscopy Objective - Vital Signs/Intake and Output Vital Signs (last 24 hours): Temp Pulse Resp BP Pulse Ox 97.7 F 55 L 20 128/76 96 11/26/18 15:00 11/26/18 16:00 11/26/18 15:00 11/26/18 15:00 11/26/18 15:00 Intake and Output: 11/26/18 11/27/18 18:59 06:59 Intake Total 1350 Balance 1350 - Medications Medications: Current Medications Aspirin (Aspirin Chewable) 81 mg PO DAILY [facility] Last Admin: 11/26/18 10:50 Dose: Not Given Belladonna/Phenobarbital () 1 tab PO TID [facility] Last Admin: 11/26/18 19:30 Dose: 1 tab Dicyclomine HCl (Bentyl) 20 mg PO BID [facility] Last Admin: 11/26/18 19:30 Dose: 20 mg Enoxaparin Sodium (Lovenox) 40 mg SC DAILY [facility] Last Admin: 11/26/18 10:50 Dose: Not Given Metronidazole (Flagyl) 500 mg in 100 mls @ 100 mls/hr IVPB Q8 [facility]; Protocol Last Admin: 11/26/18 13:58 Dose: 100 mls/hr Potassium Chloride/Dextrose/Sod Cl (Potassium Chl 20 Meq In D5-1/2ns) 1,000 mls @ 70 mls/hr IV .[id number] [facility] Last Admin: 11/26/18 16:19 Dose: 70 mls/hr Ceftriaxone Sodium 1 gm/ (Sodium Chloride) 100 mls @ 100 mls/hr IVPB Q24H [facility]; Protocol Last Admin: 11/26/18 16:21 Dose: 100 mls/hr Morphine Sulfate (Morphine) 1 mg SC Q4 PRN PRN Reason: Pain, severe (8-10) Last Admin: 11/24/18 00:15 Dose: 1 mg Ondansetron HCl (Zofran Inj) 4 mg IVP Q4 PRN PRN Reason: Nausea/Vomiting Last Admin: 11/25/18 21:53 Dose: 4 mg Pantoprazole Sodium (Protonix Ec Tab) 40 mg PO DAILY [facility] Last Admin: 11/26/18 16:28 Dose: 40 mg Rosuvastatin Calcium (Crestor) 10 mg PO HS [facility] Last Admin: 11/25/18 21:13 Dose: 10 mg Saccharomyces Boulardii (Florastor) 250 mg PO DAILY [facility] Last Admin: 11/26/18 10:50 Dose: Not Given - Labs Labs: 11/25/18 08:28 11/26/18 07:28 PT 12.6 SECONDS (9.7-12.2) H 11/22/18 21:17 INR 1.2 11/22/18 21:17 APTT 31 SECONDS (21-34) 11/22/18 21:17 - Constitutional Appears: Non-toxic - Head Exam Head Exam: ATRAUMATIC - Eye Exam Eye Exam: EOMI - ENT Exam ENT Exam: Mucous Membranes Moist - Neck Exam Neck Exam: absent: Lymphadenopathy, Thyromegaly - Respiratory Exam Respiratory Exam: Clear to Ausculation Bilateral. absent: Rales - Cardiovascular Exam Cardiovascular Exam: REGULAR RHYTHM, Murmur - Rectal Exam Rectal Exam: Deferred - Extremities Exam Extremities Exam: Normal Capillary Refill. absent: Calf Tenderness - Neurological Exam Neurological Exam: Alert, Oriented x3 - Psychiatric Exam Psychiatric exam: Normal Affect - Skin Skin Exam: Dry Assessment and Plan (1) Abdominal pain Status: Acute (2) Hypertension Status: Chronic (3) Chest pain Status: Acute (4) Diarrhea Status: Acute (5) Hypokalemia Status: Acute
--- NOTE | 2018-11-26 21:46 | CP.PCM.PN ---
Subjective - Date & Time of Evaluation Date of Evaluation: 11/26/18 Time of Evaluation: 07:41 - Subjective Subjective: dictated Objective - Vital Signs/Intake and Output Vital Signs (last 24 hours): Temp Pulse Resp BP Pulse Ox 97.7 F 55 L 20 128/76 96 11/26/18 15:00 11/26/18 16:00 11/26/18 15:00 11/26/18 15:00 11/26/18 15:00 Intake and Output: 11/26/18 11/27/18 18:59 06:59 Intake Total 1350 Balance 1350 - Medications Medications: Current Medications Aspirin (Aspirin Chewable) 81 mg PO DAILY [facility] Last Admin: 11/26/18 10:50 Dose: Not Given Belladonna/Phenobarbital () 1 tab PO TID [facility] Last Admin: 11/26/18 19:30 Dose: 1 tab Dicyclomine HCl (Bentyl) 20 mg PO BID [facility] Last Admin: 11/26/18 19:30 Dose: 20 mg Enoxaparin Sodium (Lovenox) 40 mg SC DAILY [facility] Last Admin: 11/26/18 10:50 Dose: Not Given Metronidazole (Flagyl) 500 mg in 100 mls @ 100 mls/hr IVPB Q8 [facility]; Protocol Last Admin: 11/26/18 13:58 Dose: 100 mls/hr Potassium Chloride/Dextrose/Sod Cl (Potassium Chl 20 Meq In D5-1/2ns) 1,000 mls @ 70 mls/hr IV .[id number] [facility] Last Admin: 11/26/18 16:19 Dose: 70 mls/hr Ceftriaxone Sodium 1 gm/ (Sodium Chloride) 100 mls @ 100 mls/hr IVPB Q24H [facility]; Protocol Last Admin: 11/26/18 16:21 Dose: 100 mls/hr Morphine Sulfate (Morphine) 1 mg SC Q4 PRN PRN Reason: Pain, severe (8-10) Last Admin: 11/24/18 00:15 Dose: 1 mg Ondansetron HCl (Zofran Inj) 4 mg IVP Q4 PRN PRN Reason: Nausea/Vomiting Last Admin: 11/25/18 21:53 Dose: 4 mg Pantoprazole Sodium (Protonix Ec Tab) 40 mg PO DAILY [facility] Last Admin: 11/26/18 16:28 Dose: 40 mg Rosuvastatin Calcium (Crestor) 10 mg PO HS [facility] Last Admin: 11/25/18 21:13 Dose: 10 mg Saccharomyces Boulardii (Florastor) 250 mg PO DAILY [facility] Last Admin: 11/26/18 10:50 Dose: Not Given - Labs Labs: 11/25/18 08:28 11/26/18 07:28 PT 12.6 SECONDS (9.7-12.2) H 11/22/18 21:17 INR 1.2 11/22/18 21:17 APTT 31 SECONDS (21-34) 11/22/18 21:17
[2018-11-27] MEDS: metroNIDAZOLE IV 500 mg/100 ml 500 MG/100 ML BAG IVPB SCH ×3 (06:17→21:05)
[2018-11-27] MEDS: Pantoprazole 40 mg EC Tab PO SCH (10:23)
[2018-11-27] MEDS: Belladonna-Phenobarbital PO SCH ×3 (10:23→17:35)
[2018-11-27] MEDS: Saccharomyces Boulardi 250 mg Cap PO SCH (10:24)
[2018-11-27] MEDS: Potassium Ch 20mEq in D5-1/2NS 1,000 ML IV SCH ×2 (14:08→16:31)
--- NOTE | 2018-11-27 15:23 | PN ---
DATE: 11/27/2018 LOCATION: 565, bed A. SUBJECTIVE: This 73-year-old female, very emotional, seen and examined in rounds, appears to be awake, alert, oriented, denying any significant profuse diarrhea. No chest pain, palpitation or shortness of breath. The patient denied any chills or fever. Intermittent period of crampy abdominal pain, reported associated with nausea and dyspepsia. The entire chart is reviewed including the most recent lab results. Today's lab results still pending. PHYSICAL EXAMINATION: GENERAL: A 73-year-old female. VITAL SIGNS: Afebrile with pulse of 58, respiratory 20-22, blood pressure of 140/74. HEENT: Showed mildly pale dry oral mucous membrane. Nonicteric sclerae. LUNGS: Few scattered crepitation. Decreased air entry at bases. HEART: Positive S1 and S2. ABDOMEN: Soft with mild generalized tenderness and distention. No mass or organomegaly. No rebound tenderness or guarding. RECTAL: Examination, the patient refused. EXTREMITIES: Without significant clubbing, cyanosis or edema. NEUROLOGIC: No reported new neurological deficits, sensory or motor. IMPRESSION: 1. Diarrhea, most likely secondary to acute diverticulitis, no evidence so far of pseudomembranous colitis. 2. Diverticulosis by recent colonoscopy with mild colitis. 3. Known history of hypertension. 4. Electrolyte imbalance secondary to above with anemia. 5. Chest pain, most likely noncardiac. SUGGESTIONS: 1. Agree with your plan. 2. Adjust oral intake, no citrus, no seeds. 3. If the patient's chest pain persisted, then upper endoscopy to be kept in mind to rule out noncardiac chest pain. Moses Leavitt MD
--- NOTE | 2018-11-27 21:11 | CP.PCM.PN ---
Subjective - Date & Time of Evaluation Date of Evaluation: 11/27/18 Time of Evaluation: 09:00 - Subjective Subjective: dictated Objective - Vital Signs/Intake and Output Vital Signs (last 24 hours): Temp Pulse Resp BP Pulse Ox 97.6 F 55 L 20 114/60 97 11/27/18 15:00 11/27/18 18:18 11/27/18 15:00 11/27/18 15:00 11/27/18 15:00 Intake and Output: 11/27/18 11/28/18 18:59 06:59 Intake Total 1010 Balance 1010 - Medications Medications: Current Medications Aspirin (Aspirin Chewable) 81 mg PO DAILY [facility] Last Admin: 11/27/18 10:23 Dose: 81 mg Belladonna/Phenobarbital () 1 tab PO TID [facility] Last Admin: 11/27/18 17:35 Dose: 1 tab Dicyclomine HCl (Bentyl) 20 mg PO BID [facility] Last Admin: 11/27/18 17:35 Dose: 20 mg Enoxaparin Sodium (Lovenox) 40 mg SC DAILY [facility] Last Admin: 11/26/18 10:50 Dose: Not Given Metronidazole (Flagyl) 500 mg in 100 mls @ 100 mls/hr IVPB Q8 [facility]; Protocol Last Admin: 11/27/18 21:05 Dose: 100 mls/hr Ceftriaxone Sodium 1 gm/ (Sodium Chloride) 100 mls @ 100 mls/hr IVPB Q24H [facility]; Protocol Last Admin: 11/27/18 16:34 Dose: 100 mls/hr Loperamide HCl (Imodium) 2 mg PO QID PRN PRN Reason: Diarrhea Last Admin: 11/27/18 21:05 Dose: 2 mg Morphine Sulfate (Morphine) 1 mg SC Q4 PRN PRN Reason: Pain, severe (8-10) Last Admin: 11/24/18 00:15 Dose: 1 mg Ondansetron HCl (Zofran Inj) 4 mg IVP Q4 PRN PRN Reason: Nausea/Vomiting Last Admin: 11/25/18 21:53 Dose: 4 mg Pantoprazole Sodium (Protonix Ec Tab) 40 mg PO DAILY [facility] Last Admin: 11/27/18 10:23 Dose: 40 mg Rosuvastatin Calcium (Crestor) 10 mg PO HS [facility] Last Admin: 11/27/18 21:05 Dose: 10 mg Saccharomyces Boulardii (Florastor) 250 mg PO DAILY [facility] Last Admin: 11/27/18 10:24 Dose: 250 mg - Labs Labs: 11/25/18 08:28 11/26/18 07:28 PT 12.6 SECONDS (9.7-12.2) H 11/22/18 21:17 INR 1.2 11/22/18 21:17 APTT 31 SECONDS (21-34) 11/22/18 21:17
--- NOTE | 2018-11-28 01:01 | PN ---
DATE: 11/27/2018 SUBJECTIVE: The patient is still with one or two loose bowel movements. Overall, her abdominal pain is better. She had a colonoscopy done, and the patient has colitis and spasmodic colon. PHYSICAL EXAMINATION: VITAL SIGNS: She is afebrile. Blood pressure 114/60, pulse 70, respiratory rate 20, and temperature 97.6. LUNGS: Clear. CVS: S1, S2. Regular. ABDOMEN: Soft. ASSESSMENT: 1. Abdominal pain, nausea, vomiting. 2. Chest pain. 3. Hypertension. PLAN: Continue current medication, Imodium p.r.n. Monitor the patient. The patient's CAT scan of abdomen and pelvis is positive for diverticulosis with no diverticulitis. Parag Lamar MD
[2018-11-28] MEDS: metroNIDAZOLE IV 500 mg/100 ml 500 MG/100 ML BAG IVPB SCH ×2 (06:13→13:09)
[2018-11-28] MEDS: Belladonna-Phenobarbital PO SCH ×2 (10:21→13:08)
[2018-11-28] MEDS: Saccharomyces Boulardi 250 mg Cap PO SCH (10:21)
[2018-11-28] MEDS: Pantoprazole 40 mg EC Tab PO SCH (10:21)
--- NOTE | 2018-11-28 11:09 | CP.PCM.PN ---
Subjective - Date & Time of Evaluation Date of Evaluation: 11/28/18 Time of Evaluation: 11:08 Objective - Vital Signs/Intake and Output Vital Signs (last 24 hours): Temp Pulse Resp BP Pulse Ox 98 F 56 L 20 150/68 96 11/28/18 08:14 11/28/18 08:14 11/28/18 08:14 11/28/18 08:14 11/28/18 08:14 Intake and Output: 11/28/18 11/28/18 06:59 18:59 Intake Total 800 Balance 800 - Medications Medications: Current Medications Aspirin (Aspirin Chewable) 81 mg PO DAILY [facility] Last Admin: 11/28/18 10:21 Dose: 81 mg Belladonna/Phenobarbital () 1 tab PO TID [facility] Last Admin: 11/28/18 10:21 Dose: 1 tab Dicyclomine HCl (Bentyl) 20 mg PO BID [facility] Last Admin: 11/28/18 10:21 Dose: 20 mg Enoxaparin Sodium (Lovenox) 40 mg SC DAILY [facility] Last Admin: 11/26/18 10:50 Dose: Not Given Metronidazole (Flagyl) 500 mg in 100 mls @ 100 mls/hr IVPB Q8 [facility]; Protocol Last Admin: 11/28/18 06:13 Dose: 100 mls/hr Ceftriaxone Sodium 1 gm/ (Sodium Chloride) 100 mls @ 100 mls/hr IVPB Q24H [facility]; Protocol Last Admin: 11/27/18 16:34 Dose: 100 mls/hr Loperamide HCl (Imodium) 2 mg PO QID PRN PRN Reason: Diarrhea Last Admin: 11/27/18 21:05 Dose: 2 mg Morphine Sulfate (Morphine) 1 mg SC Q4 PRN PRN Reason: Pain, severe (8-10) Last Admin: 11/24/18 00:15 Dose: 1 mg Ondansetron HCl (Zofran Inj) 4 mg IVP Q4 PRN PRN Reason: Nausea/Vomiting Last Admin: 11/25/18 21:53 Dose: 4 mg Pantoprazole Sodium (Protonix Ec Tab) 40 mg PO DAILY [facility] Last Admin: 11/28/18 10:21 Dose: 40 mg Rosuvastatin Calcium (Crestor) 10 mg PO HS [facility] Last Admin: 11/27/18 21:05 Dose: 10 mg Saccharomyces Boulardii (Florastor) 250 mg PO DAILY [facility] Last Admin: 11/28/18 10:21 Dose: 250 mg - Labs Labs: 11/25/18 08:28 11/26/18 07:28 PT 12.6 SECONDS (9.7-12.2) H 11/22/18 21:17 INR 1.2 11/22/18 21:17 APTT 31 SECONDS (21-34) 11/22/18 21:17 Assessment and Plan - Assessment and Plan (Free Text) Assessment: OLLOW UP WITH DR BRANDT IN HIS OFFICE -----CALL FOR APPOITNEMENT FOLLOW UP WITH DR NEWBY CONTINUE HOME MEDICATION NEW PRESCRIPTION IN THE CHART BY DR BRANDT FOR CIPRO / FLAGYL/ASPIRIN/ CRESTOR NEW PRESCRIPTION GIVEN FLORASTOR 250 MG PO BID BENTYL PO ACTIVITY TOLERATED CALL DR BRANDT OR GO TO THE EMERGENCY ROOM IF SYMPTOM RETURN OR WORSENING
--- NOTE | 2018-11-28 12:28 | CP.PCM.PN ---
Subjective - Date & Time of Evaluation Date of Evaluation: 11/28/18 Time of Evaluation: 08:20 - Subjective Subjective: dictated Objective - Vital Signs/Intake and Output Vital Signs (last 24 hours): Temp Pulse Resp BP Pulse Ox 98 F 52 L 20 130/66 96 11/28/18 08:14 11/28/18 10:15 11/28/18 08:14 11/28/18 10:15 11/28/18 08:14 Intake and Output: 11/28/18 11/28/18 06:59 18:59 Intake Total 800 Balance 800 - Medications Medications: Current Medications Aspirin (Aspirin Chewable) 81 mg PO DAILY [facility] Last Admin: 11/28/18 10:21 Dose: 81 mg Belladonna/Phenobarbital () 1 tab PO TID [facility] Last Admin: 11/28/18 10:21 Dose: 1 tab Dicyclomine HCl (Bentyl) 20 mg PO BID [facility] Last Admin: 11/28/18 10:21 Dose: 20 mg Enoxaparin Sodium (Lovenox) 40 mg SC DAILY [facility] Last Admin: 11/26/18 10:50 Dose: Not Given Metronidazole (Flagyl) 500 mg in 100 mls @ 100 mls/hr IVPB Q8 [facility]; Protocol Last Admin: 11/28/18 06:13 Dose: 100 mls/hr Ceftriaxone Sodium 1 gm/ (Sodium Chloride) 100 mls @ 100 mls/hr IVPB Q24H [facility]; Protocol Last Admin: 11/27/18 16:34 Dose: 100 mls/hr Loperamide HCl (Imodium) 2 mg PO QID PRN PRN Reason: Diarrhea Last Admin: 11/27/18 21:05 Dose: 2 mg Morphine Sulfate (Morphine) 1 mg SC Q4 PRN PRN Reason: Pain, severe (8-10) Last Admin: 11/24/18 00:15 Dose: 1 mg Ondansetron HCl (Zofran Inj) 4 mg IVP Q4 PRN PRN Reason: Nausea/Vomiting Last Admin: 11/25/18 21:53 Dose: 4 mg Pantoprazole Sodium (Protonix Ec Tab) 40 mg PO DAILY [facility] Last Admin: 11/28/18 10:21 Dose: 40 mg Rosuvastatin Calcium (Crestor) [address] [facility] Last Admin: 01/31/19 21:05 Dose: 10 mg Saccharomyces Boulardii (Florastor) 250 mg PO DAILY [facility] Last Admin: 11/28/18 10:21 Dose: 250 mg - Labs Labs: 11/25/18 08:28 11/26/18 07:28 PT 12.6 SECONDS (9.7-12.2) H 11/22/18 21:17 INR 1.2 11/22/18 21:17 APTT 31 SECONDS (21-34) 11/22/18 21:17
[2018-11-28 16:18] VITALS: BP 147/75; PULSE 70; TEMP 97.8; O2SAT 99
--- NOTE | 2018-11-28 18:26 | PN ---
DATE: 11/28/2018 LOCATION: 656, bed A. SUBJECTIVE: This 73-year-old female seen and examined in rounds without any significant clinical changes or reported active bleeding, tolerating oral intake well. No nausea or vomiting. The entire chart is reviewed including but not limited to the most recent lab and radiology study results, current and the previous medical events. Case discussed with the staff at length, keeping in mind that the patient's stool occult blood is negative. PHYSICAL EXAMINATION: GENERAL: A 73-year-old female, awake, alert and oriented. VITAL SIGNS: Afebrile with pulse of 58, respiratory rate 20 to 22, blood pressure 136/64. HEENT: Showed pale dry oral mucoid membrane mildly, nonicteric sclerae. LUNGS: Few scattered crepitation. Decreased air entry at bases. HEART: Positive S1 and S2. ABDOMEN: Soft with slight generalized tenderness. No mass or organomegaly. No rebound tenderness or guarding. EXTREMITIES: Without reported edema, clubbing or cyanosis. NEUROLOGIC: No reported new neurological deficits, sensory or motor. LABORATORY DATA: It has to be mentioned that the colon biopsy report is seen without evidence of neoplastic changes. IMPRESSION: 1. Diarrhea, most likely secondary to acute diverticulitis with mild diverticulosis. 2. Known history of hypertension. 3. Electrolyte imbalance secondary to above. SUGGESTIONS: 1. Continue current management. 2. Continue Bentyl 10 mg 1 tablet twice a day p.r.n. 3. Further recommendation to follow. Will follow up with you only as outpatient. Moses Leavitt MD
--- NOTE | 2018-11-29 03:28 | DS ---
DISCHARGE DIAGNOSES: 1. Gastritis. 2. Noncoronary chest pain. 3. Hypertension. 4. Persistent bradycardia. HISTORY OF PRESENT ILLNESS: This is a 73-year-old female being followed up associate civil engineer, Dr. Mcwilliams, who came in because of abdominal pain, nausea, vomiting, and diarrhea. The patient underwent colonoscopy, which showed spastic colon. The patient's stool workup is negative. Electrolytes are normal. She is for discharge. Condition upon discharge is stable. Cardiac enzymes x3 were negative. Workup in the past, cardiac etiology has been negative. The patient's electrolytes are stable, sodium 138, potassium 3.7, chloride 111, bicarbonate 23, BUN 5, and creatinine 1.1. CONDITION UPON DISCHARGE: Stable. Parag Lamar MD
== END 2018-11-28 18:01 | disposition home or self-care (01) | DRG 392 ==
LOC: C.ER 20:34 → C.9E 11-23 06:25 → C.5S 11-23 23:08 → OBSVTOIN 11-25 13:13
PROVIDERS: ADMIT Internal Medicine; ATTEND Internal Medicine
PROC: 0DBN8ZX Excision of Sigmoid Colon, Via Natural or Artificial Opening Endoscopic, Diagnostic (ICD-10-PCS; principal; 2018-11-26 12:15)
DX: K57.32 Diverticulitis of large intestine without perforation or abscess without bleeding (principal); K21.9 Gastro-esophageal reflux disease without esophagitis; K57.92 Diverticulitis of intestine, part unspecified, without perforation or abscess without bleeding; I10 Essential (primary) hypertension; E87.6 Hypokalemia; E86.0 Dehydration; E78.5 Hyperlipidemia, unspecified; E66.9 Obesity, unspecified; D64.9 Anemia, unspecified; J45.909 Unspecified asthma, uncomplicated; K29.70 Gastritis, unspecified, without bleeding; K52.9 Noninfective gastroenteritis and colitis, unspecified; Z87.891 Personal history of nicotine dependence; K58.9 Irritable bowel syndrome, unspecified; R00.1 Bradycardia, unspecified; Z68.36 Body mass index [BMI] 36.0-36.9, adult; K57.30 Diverticulosis of large intestine without perforation or abscess without bleeding; I49.5 Sick sinus syndrome